=== PATIENT | female | born 1960 | race Caucasian/White ===

== ENCOUNTER → 2016-05-31 | Outpatient (CLI) | payer BC ==
--- NOTE | 2016-05-31 14:11 | REP ---
TWO VIEW CHEST: Two views of the chest are performed and compared to a prior study of 02/24/2016. There is again mild bibasilar fibroatelectatic change. There is no evidence of acute infiltrate. The heart does not appear to be significantly enlarged. The mediastinal silhouette is unchanged. The visualized osseous structures are intact. IMPRESSION: Stable chronic findings. No evidence of acute infiltrate. Signed by Pranav Wilson MD 05/31/2016 04:53 P
== END ==
LOC: M LRY 12:53
PROVIDERS: ATTEND Physician Assistant
DX: M25.512 Pain in left shoulder (principal)

== ENCOUNTER → 2018-08-19 | Outpatient (CLI) | payer BC ==
[2018-08-19 20:32] LABS: FREE T4 1.34 NG/DL (0.76-1.46); THYROID STIMULATING HORMONE 2.16 uIU/ML (0.358-3.740)
== END ==
LOC: M WUC 17:15
PROVIDERS: ATTEND Physician Assistant
DX: E89.0 Postprocedural hypothyroidism (principal)

== ENCOUNTER → 2019-04-28 | Outpatient (CLI) | payer BC ==
[2019-04-28 21:08] LABS: FREE T4 1.54 NG/DL (0.76-1.46); THYROID STIMULATING HORMONE 2.54 uIU/ML (0.358-3.740)
== END ==
LOC: M WUC 17:20
PROVIDERS: ATTEND Physician Assistant
DX: E89.0 Postprocedural hypothyroidism (principal)

== ENCOUNTER → 2019-11-17 | Outpatient (CLI) | payer BC ==
[2019-11-17 19:43] LABS: FREE T4 1.19 NG/DL (0.76-1.46); THYROID STIMULATING HORMONE 6.82 uIU/ML (0.358-3.740)
== END ==
LOC: M WUC 17:03
PROVIDERS: ATTEND Physician Assistant
DX: E89.0 Postprocedural hypothyroidism (principal)